=== PATIENT | female | born 1990 | race Caucasian/White ===

== ENCOUNTER 2018-04-30 13:41 | Inpatient (IN) ==
[2018-04-30] MEDS ORDERED: Morphine Inj 4 MG/ML Vial IV.PUSH ONE (14:36)
[2018-04-30] MEDS ORDERED: Morphine Inj 4 MG/ML Vial ONE (14:38)
[2018-04-30] MEDS ORDERED: Bupivacaine/Epinephrine Inj 0.25% 50 ML Vial ONE (14:56)
--- NOTE | 2018-04-30 15:10 | P.HPOB ---
History of Present Illness Primary Care Physician: No Primary Care Physician History of Present Illness: This patient is 28-year-old white female previous x1 now being treated for ectopic . She received methotrexate 2 weeks ago and has had falling quantitative hCGs appropriately however today woke up with severe abdominal pain. Ultrasound and other findings consistent with hemoperitoneum and a bleeding ectopic . She is having some vaginal bleeding. Weeks Gestation:: 6 Para: 1 (Previous ) : 2 Review of Systems All other systems reviewed negative except as stated in HPI PMFSH - History History Provided By: Patient - Medical History Medical History: Medical History (Last Reviewed 04/30/18 @ 09:24 by Fernanda Valladares RN) Anxiety and depression Hepatitis C IV drug abuse PTSD (post-traumatic stress disorder) - Surgical History Surgical History: Surgical History (Last Reviewed 04/30/18 @ 09:24 by Fernanda Valladares RN) H/O: - Tobacco History Second Hand Smoke Exposure: Yes Smoking Status: Current every day smoker Tobacco Type: Cigarettes - Alcohol History How Often Do You Have a Drink Containing Alcohol: Never - Substance Use History Substance History: Past History - Travel History History of Recent Travel: No Recent Travel in the [place] Within the Last 8 Weeks: No Recent Travel Out of the Country Within the Last 8 Weeks: No Medications and Allergies Allergies Allergy/AdvReac Type Severity Reaction Status Date / Time No Known Allergies Allergy Verified 04/30/18 09:20 Home Medications Medication Instructions Recorded Confirmed Type buspirone 15 mg PO TID 03/18/18 04/30/18 History escitalopram oxalate [Lexapro] 20 mg PO DAILY 03/18/18 04/30/18 History methadone 45 mg PO DAILY 03/18/18 04/30/18 History prazosin 1 mg PO HS 03/18/18 04/30/18 History quetiapine 50 mg PO HS 03/18/18 04/30/18 History PNV cmb#95-ferrous fumarate-FA 1 tab PO DAILY 04/01/18 04/30/18 History [] Exam Narrative: GENERAL: Well-nourished, well-developed patient. SKIN: Warm and dry. HEAD: Normocephalic and atraumatic. EYES: No scleral icterus. No injection or drainage. ENT: No nasal drainage noted. Mucous membranes pink. Airway patent. NECK: Supple, trachea midline. No JVD. CARDIOVASCULAR: Regular rate and rhythm without murmurs, gallops, or rubs. RESPIRATORY: Breath sounds equal bilaterally. No accessory muscle use. BREASTS: Bilateral exam showed no masses , no retractions, no nipple discharge. ABDOMEN/GI: Abdomen firm with 3+ tenderness in the left lower quadrant positive rebound tenderness same noted on the right lower quadrant-tender, bowel sounds decreased, positive rebound, positive guarding GENITOURINARY: External Genitalia: intact and normal in appearance BUS glands: [-] Cervix: [post-] positive CMT Dilatation: [0] Effacement: [-0] Station: [-high] EXTREMITIES: No cyanosis or edema. BACK: Nontender without obvious deformity. No CVA tenderness. NEUROLOGICAL: Awake and alert. Motor and sensory grossly within normal limits. Five out of 5 muscle strength in all muscle groups. Normal speech. Results - Labs Labs: Refer to lab in the computer from [facility] different visit Quantitative hCGs have gone from 8400 when she was treated with methotrexate down to 5000 then 1713, 1300 so it is dropped appropriately do the methotrexate however she is now developed hemo peritoneal signs - Imaging See the pelvic ultrasound done in [facility] results Caprini VTE Risk Assessment Caprini VTE Risk Assessment: No/Low Risk (score <= 1) Caprini Risk Assessment Model: Point Value = 1 Point Value = 2 Point Value = 3 Point Value = 5 Age 41-60 Minor surgery BMI > 25 kg/m2 Swollen legs Varicose veins or History of unexplained or recurrent spontaneous Oral contraceptives or hormone replacement Sepsis (< 1 month) Serious lung disease, including pneumonia (< 1 month) Abnormal pulmonary function Acute myocardial infarction Congestive heart failure (< 1 month) History of inflammatory bowel disease Medical patient at bed rest Age 61-74 Arthroscopic surgery Major open surgery (> 45 min) Laparoscopic surgery (> 45 min) Malignancy Confined to bed (> 72 hours) Immobilizing plaster cast Central venous access Age >= 75 History of VTE Family history of VTE Factor V Leiden Prothrombin [id number] Lupus anticoagulant Anticardiolipin antibodies Elevated serum homocysteine Heparin-induced thrombocytopenia Other congenital or acquired thrombophilia Stroke (< 1 month) Elective arthroplasty Hip, pelvis, or leg fracture Acute spinal cord injury (< 1 month) Prophylaxis Regimen: Total Risk Factor Score Risk Level Prophylaxis Regimen 0-1 Low Early ambulation 2 Moderate Order ONE of the following: *Sequential Compression Device (SCD) *Heparin 5000 units SQ BID 3-4 Higher Order ONE of the following medications: *Heparin 5000 units SQ TID *Enoxaparin/Lovenox 40 mg SQ daily (WT < 150 kg, CrCl > 30 mL/min) *Enoxaparin/Lovenox 30 mg SQ daily (WT < 150 kg, CrCl > 10-29 mL/min) *Enoxaparin/Lovenox 30 mg SQ BID (WT < 150 kg, CrCl > 30 mL/min) AND/OR *Sequential Compression Device (SCD) 5 or more Highest Order ONE of the following medications: *Heparin 5000 units SQ TID (Preferred with Epidurals) *Enoxaparin/Lovenox 40 mg SQ daily (WT < 150 kg, CrCl > 30 mL/min) *Enoxaparin/Lovenox 30 mg SQ daily (WT < 150 kg, CrCl > 10-29 mL/min) *Enoxaparin/Lovenox 30 mg SQ BID (WT < 150 kg, CrCl > 30 mL/min) AND *Sequential Compression Device (SCD) Assessment and Plan - Diagnosis (1) Hemoperitoneum due to rupture of right tubal ectopic Code(s): O00.101 - Right tubal without intrauterine ; K66.1 - Hemoperitoneum Status: Acute - Plan Plan for this patient is diagnostic laparoscopy, right salpingectomy, and any indicated procedures. Patient understands procedure and signed consents patient 's surgeon will be Dr. Singh of the [facility]
[2018-04-30] MEDS ORDERED: ceFAZolin 1 GM Premix Inj 0 GM/0 ML FROZ.PIGGY IV.SIG ONE (15:13)
[2018-04-30] MEDS ORDERED: Ketamine Inj 50 MG/5 ML Syringe IV.PUSH ONE (15:20)
[2018-04-30] MEDS ORDERED: HYDROmorphone PF Inj 1 MG/ML Ampul ONE (15:21)
--- NOTE | 2018-04-30 15:29 | P.OP ---
Surgeon: Sammy Singh MD Operation and Findings: Preoperative diagnosis: 1. Suspected ectopic 2. Hepatitis C 3. Opiate use disorder, history of IV Dilaudid use 4. Tobacco use Postop diagnosis 1. Same as above with right ectopic Procedure 1. diagnostic laparoscopy and right salpingectomy with ectopic en bloc Surgeon Dr. Sammy Singh Airplane Technician: [facility] OR scrub staff Findings: 1. Normal external female genitalia vagina and cervix 2. Normal uterus, bilateral ovaries and left fallopian tube. Pelvis and abdomen free of adhesions 3. Enlarged right fallopian tube with unruptured ectopic with blood oozing from the fimbriated end, approximately 400 cc of blood in the pelvis at time of laparoscopy. Anesthesia: General endotracheal Specimen: Right ectopic with ectopic en bloc, to pathology routine Estimated blood loss: 5 cc, 400 cc blood intra-abdominally at the time of abdominal access Fluid replacement: 1300 cc lactated Ringer's Urine output: 100 cc clear urine Via Bridges DVT prophylaxis: Sequential compression devices throughout the case Antibiotics: none required Counts: correct x2 Time out done: yes Disposition: stable to PACU then discharge home Indications: 28 yo who who was being followed as an outpatient by a local event planning manager for suspected ectopic , she was given methotrexate approximately 2-3 weeks ago per her report her hCG has been trending down, she presented to an outside emergency department today with acute onset of abdominal pain was transferred to [facility]. She was evaluated by the [facility] hospitalist group and was felt to have an acute abdomen an ultrasound confirmed a moderate amount of free fluid within the pelvis with a 4 cm nonspecific echogenic mass adjacent to the right adnexa that had not previously been visualized. She was counseled by myself in the [facility]IST[facility] hospitalist for diagnostic laparoscopy and likely salpingectomy and removal of ectopic. Please see H&P and consents for further details. Description of procedure: Patient was taken to the operating room placed under general anesthesia, she was positioned in lithotomy in Dirk stirrups, the perineum vagina and abdomen were prepped and draped in sterile fashion. Uterus was sounded to 7 cm, a HUMI uterine manipulator was placed. Attention was turned to the abdomen, three 5 mm incisions were made, one at the umbilicus, and two at the left lower quadrant 9 cc of quarter percent Marcaine with epinephrine was used for the port sites. At the umbilicus under direct optical view technique the abdomen was entered and insufflated with CO2 gas. A survey was performed with the above details. Using the Enseal vessel sealing device the right fallopian tube was clamped desiccated and transected just inferior to the tube through the mesosalpinx and amputated at the cornua. The specimen was placed in a 10 mm Endo Catch bag that fit through the skin and fascia of the right lateral lower abdominal port site after the trocar was removed and the bag / specimen were removed from the field. The abdomen was irrigated and blood clot cleared, surgical sites were found to be hemostatic. The abdomen was desufflated and trocars were removed. The skin was closed with interrupted 4-0 Monocryl with skin glue applied overlying. The uterine manipulator and Bridges were removed and the patient was awoken from anesthesia in stable condition.
[2018-04-30] MEDS ORDERED: ceFAZolin 2 GM Premix Inj 2 GM/50 ML PIGGYBACK IV.SIG SCH (15:30)
--- NOTE | 2018-04-30 15:36 | P.OBGPN ---
Queried the PDMP and reviewed report
[2018-04-30] MEDS ORDERED: fentaNYL Citrate Inj 100 MCG/2 ML Ampul ONE ×2 (17:03)
[2018-04-30 18:56] VITALS: BP 101/61; PULSE 73; RESP 17; TEMP 98.6; O2SAT 98
== END 2018-04-30 19:45 | disposition home or self-care (01) ==
LOC: NEPE 13:41 → HPAC 16:48
PROVIDERS: ADMIT Obstetrics & Gynecology Maternal & Fetal Medicine; ATTEND Obstetrics & Gynecology Maternal & Fetal Medicine
PROC: LAPSALP (ICD-10-PCS; 2018-04-30 15:45)
PROC: LAPSCPY (ICD-10-PCS; 2018-04-30 15:45)